=== PATIENT | male | born 1970 | race Caucasian/White ===

== ENCOUNTER 2016-06-19 01:00 | Emergency (ER) | payer BC ==
--- NOTE | ~2016-06-19 | CR72 ---
[facility] A Service of [facility] RADIOLOGY TEXT RESULTS PATIENT: SANJEEV SALAZAR LOCATION: SED : 68 UNIT #: [id number] AGE: [address]: Jaime Valdes MD SEX: M ORDER DR: [id number] [place] [id number] E MR#: [id number] Acc #: [id number] NAME: SANJEEV SALAZAR : 1970 SEX: M STUDY DATE/TIME: 06/19/2016 1:42 UNIT: SED ROOM: STUDY DESCRIPTION: CR Chest Single View Portable Attending Physician: Jaime Valdes M.D. Ordering Physician: Jaime Valdes M.D. Primary Care Physician: Alex Giraldo Pa-C MEDICAL IMAGING REPORT This report is preliminary unless electronic signature is present. EXAM Portable AP view of chest. COMPARISON June 16, 2015, July 05, 2010. INDICATION 45-year-old male with chest pain and nausea for a few weeks, with worsening chest pain over the last 2 days. History of GERD. FINDINGS No evidence of pneumothorax, pleural effusion, or acute airspace disease. There is cardiomegaly, without evidence of pulmonary edema. IMPRESSION Cardiomegaly without pulmonary edema. Chest appears stable from May of last year. Dictated by... Ayad Diaz M.D. THIS IS AN ELECTRONICALLY VERIFIED REPORT Ayad Diaz M.D. at 06/22/2016 8:31 PM RONEL/sissy TD: 06/19/2016 09:45 JOB #: [id number] MEDICAL IMAGING REPORT
--- NOTE | ~2016-06-19 | EKG ---
PATIENT: SANJEEV SALAZAR UNIT #: [id number] Ventricular Rate: 71 BPM Atrial Rate: 71 BPM P-R Interval: 136 ms QRS Duration: 86 ms Q-T Interval: 366 ms QTC Calculation(Bezet): 397 ms P [place]: 43 degrees Calculated R [place]: 47 degrees Calculated T [place]: 42 degrees Diagnosis Line: Normal sinus rhythm Diagnosis Line: Normal ECG Diagnosis Line: When compared with ECG of 13-MAY-2016 07:22, Diagnosis Line: No significant change was found Diagnosis Line: Confirmed by LEONEL RUIZ MD ([id number]) on Diagnosis Line: 06/20/2016 12:22:17 PM INTERPRETING : LOIS
[~2016-06-19 01:00] MED LIST: AMOXICILLIN875 MG PO; ASPIRIN81 M2 PO; CIPRO PO; CLINDAMYCIN HC300 MG PO; FIORICET1 TAB PO; FLEXERIL10 M1 PO; HYCODAN60 ML 5MG/ PO; LORTAB 7.5-5001 TAB; NICOTINE GUM2 M1 BU; NO MEDICATIONS; NORVASC10 MG PO; OMEPRAZOLE40 M1 PO; PHENERGAN25 MG; PREDNISONE50 MG PO; PRILOSEC; PRILOSEC20 MG PO; PRINIVIL20 M1 PO; PYRIDIUM PO; SIMVASTATIN20 MG PO; TYLENOL #3 PO; VOLTAREN75 MG PO; ZITHROMAX PO
[2016-06-19 01:48] LABS: BASOPHIL# 0.1 X10e3 (0-0.3); BASOPHIL% 0.9 % (0-2.5); EOSINOPHIL# 0.1 X10e3 (0-0.7); EOSINOPHIL% 1.9 % (0.0-7.0); HEMATOCRIT 42.2 % (38.0-50.0); HEMOGLOBIN 14.1 gm/dL (13.0-16.0); LYMPHOCYTE# 1.5 X10e3 (1.0-3.5); LYMPHOCYTE% 24.7 % (17.0-45.0); MEAN CELL VOLUME 87.3 FL (83-96); MEAN CORPUSCULAR HEMOGLOBIN 29.1 PG (28-34); MEAN CORPUSCULAR HGB CONC 33.3 g/dL (30-36); MEAN PLATELET VOLUME 8.1 FL (6.5-11.5); MONOCYTE# 0.4 X10e3 (0-1.0); MONOCYTE% 6.1 % (3.0-12.0); NEUTROPHIL# 3.9 X10e3 (1.5-7.1); NEUTROPHIL% 66.4 % (40-75); PLATELET COUNT 200 X10e3 (140-420); RED BLOOD COUNT 4.83 X10e (3.90-5.60); RED CELL DISTRIBUTION WIDTH 13.6 % (11.0-15.5); WHITE BLOOD COUNT 5.9 X10e3 (4.0-10.5)
[2016-06-19 01:50] LABS: DIFF IND NO
[2016-06-19 02:03] LABS: POC - CKMB <1.0 ng/mL (0.0-7.9)
[2016-06-19 02:03] LABS: BLOOD UREA NITROGEN 16 mg/dL (9-23); BUN/CREATININE RATIO 14.54; CALCIUM SERUM 9.1 mg/dL (8.4-10.2); CARBON DIOXIDE 27 mmol/L (22-31); CHLORIDE 102 mmol/L (100-111); CREATININE SERUM 1.1 mg/dL (0.6-1.4); GLOM FILT RATE Estimated ABOVE60 mL/min (>60); GLUCOSE FASTING 103 mg/dL (70-110); POTASSIUM 3.9 mmol/L (3.5-5.1); SODIUM 138 mmol/L (135-145)
[2016-06-19 02:04] LABS: POC - TROPONIN <0.05 ng/mL (<=0.05)
[2016-06-19 02:08] LABS: INR 1.1; PROTHROMBIN TIME (PATIENT) 12.6 SECONDS (9.5-12.4)
[2016-06-19 02:16] LABS: PARTIAL THROMBOPLASTIN TIME 28.7 SECONDS (25.6-38.1)
[2016-07-06] MEDS ORDERED: ZIAC1 TAB 5/6. PO (23:00)
== END 2016-06-19 04:06 | disposition home or self-care (01) ==
LOC: SED 01:00
PROVIDERS: Emergency Medicine
DX: K21.9 Gastro-esophageal reflux disease without esophagitis (principal); I10 Essential (primary) hypertension
CPT/HCPCS: 36415; 71010; 80048; 82553; 83874; 84484; 85025; 85610; 85730; 93005; 96374; 99284; C9113

== ENCOUNTER 2016-07-06 23:16 | Emergency (ER) | payer BC ==
--- NOTE | ~2016-07-06 | EKG ---
PATIENT: SANJEEV SALAZAR UNIT #: [id number] Ventricular Rate: 54 BPM Atrial Rate: 54 BPM P-R Interval: 154 ms QRS Duration: 96 ms Q-T Interval: 414 ms QTC Calculation(Bezet): 392 ms P [place]: 44 degrees Calculated R [place]: 42 degrees Calculated T [place]: 43 degrees Diagnosis Line: Sinus bradycardia Diagnosis Line: Otherwise normal ECG Diagnosis Line: When compared with ECG of 19-JUN-2016 00:41, Diagnosis Line: No significant change was found Diagnosis Line: Confirmed by MORGAN MONTGOMERY MD ([id number]) on 07/08/2016 Diagnosis Line: 7:41:32 AM INTERPRETING MD: VALENTINA MEJIA
--- NOTE | ~2016-07-06 | CT71 ---
[facility] A Service of [facility] RADIOLOGY TEXT RESULTS PATIENT: SANJEEV SALAZAR LOCATION: SED : 68 UNIT #: [id number] AGE: [address]: Jaime Valdes MD SEX: M ORDER DR: [id number] [place] [id number] E MR#: [id number] #: [id number] NAME: SANJEEV SALAZAR : 1970 SEX: M STUDY DATE/TIME: 07/06/2016 23:37 UNIT: SED ROOM: STUDY DESCRIPTION: CT Head Wo Contrast Attending Physician: Jaime Valdes M.D. Ordering Physician: Jaime Valdes M.D. Primary Care Physician: Alex Giraldo Pa-C MEDICAL IMAGING REPORT This report is preliminary unless electronic signature is present. EXAM Noncontrast CT head. Date: 07/06/2016 23:37 HISTORY Lightheadedness and blurred vision for 6 weeks. Hypertension. COMPARISON Noncontrast CT head 02/19/2015. This CT exam was performed with one or more of the following radiation dose reduction techniques: automatic exposure control, adjustment of mA and/or kV according to patient size, and iterative reconstruction. FINDINGS No acute displaced calvarial fracture is seen. Mastoid air cells appear clear. No acute intracranial hemorrhage, mass lesion, mass effect or midline shift is appreciated. There is no CT evidence of acute or evolving infarct. Ventricular configuration is within normal limits. IMPRESSION No acute intracranial findings. Dictated by... Cathy Tellez M.D. THIS IS AN ELECTRONICALLY VERIFIED REPORT Cathy Tellez M.D. at 07/11/2016 8:37 AM DIDI/trae TD: 07/07/2016 09:50 JOB #: [id number] [facility] A Service of [facility] RADIOLOGY TEXT RESULTS PATIENT: SANJEEV SALAZAR LOCATION: SED : 68 UNIT #: [id number] AGE: [address]: Jaime Valdes MD SEX: M ORDER DR: MEDICAL IMAGING REPORT Page 1 of 1
[~2016-07-06 23:16] MED LIST changes: +ZIAC1 TAB 5/6. PO
[2016-07-06 23:41] LABS: BASOPHIL# 0.1 X10e3 (0-0.3); BASOPHIL% 1.2 % (0-2.5); EOSINOPHIL# 0.2 X10e3 (0-0.7); EOSINOPHIL% 2.5 % (0.0-7.0); HEMATOCRIT 45.8 % (38.0-50.0); HEMOGLOBIN 14.9 gm/dL (13.0-16.0); LYMPHOCYTE# 2.4 X10e3 (1.0-3.5); LYMPHOCYTE% 26.8 % (17.0-45.0); MEAN CELL VOLUME 88.3 FL (83-96); MEAN CORPUSCULAR HEMOGLOBIN 28.7 PG (28-34); MEAN CORPUSCULAR HGB CONC 32.5 g/dL (30-36); MEAN PLATELET VOLUME 8.2 FL (6.5-11.5); MONOCYTE# 0.6 X10e3 (0-1.0); MONOCYTE% 6.7 % (3.0-12.0); NEUTROPHIL# 5.7 X10e3 (1.5-7.1); NEUTROPHIL% 62.8 % (40-75); PLATELET COUNT 237 X10e3 (140-420); RED BLOOD COUNT 5.18 X10e (3.90-5.60); RED CELL DISTRIBUTION WIDTH 13.9 % (11.0-15.5); WHITE BLOOD COUNT 9.1 X10e3 (4.0-10.5)
[2016-07-06 23:42] LABS: DIFF IND NO
[2016-07-06 23:59] LABS: BLOOD UREA NITROGEN 15 mg/dL (9-23); BUN/CREATININE RATIO 13.63; CARBON DIOXIDE 29 mmol/L (22-31); CHLORIDE 99 mmol/L (100-111); CREATININE SERUM 1.1 mg/dL (0.6-1.4); GLOM FILT RATE Estimated ABOVE60 mL/min (>60); GLUCOSE FASTING 118 mg/dL (70-110); POTASSIUM 3.7 mmol/L (3.5-5.1); SODIUM 134 mmol/L (135-145)
== END 2016-07-07 00:35 | disposition home or self-care (01) ==
LOC: SED 23:16
PROVIDERS: Emergency Medicine
DX: R42 Dizziness and giddiness (principal); I10 Essential (primary) hypertension; K21.9 Gastro-esophageal reflux disease without esophagitis; Z79.899 Other long term (current) drug therapy; Z87.891 Personal history of nicotine dependence
CPT/HCPCS: 36415; 70450; 80048; 85025; 93005; 99284